=== PATIENT | male | born 1960 | race Hispanic/Latino ===

== ENCOUNTER → 2020-01-17 | Outpatient (CLI) | payer OTHER ==
[~2020-01-17] MED LIST: ALLO100T PO; ELVI1TAB3 PO; MULT1CAP32 PO; OMEG1CAP6 PO; OMEP20CA12 PO
== END | disposition home or self-care (01) ==
LOC: RAH 10:50
PROVIDERS: ATTEND Family Medicine
DX: M25.462 Effusion, left knee (principal); M17.12 Unilateral primary osteoarthritis, left knee
CPT/HCPCS: 73721